=== PATIENT | male | born 1975 | race Caucasian/White ===

== ENCOUNTER 2018-01-25 17:37 | Emergency (ER) | payer BC ==
[~2018-01-25] VITALS: Ht 172.7 cm; Wt 79.4 kg
[2018-01-25 17:37] VITALS: BP_SYST 125
--- NOTE | 2018-01-25 17:37 | NUR ---
BROUGHT BACK TO BED #4 AND TRIAGED, REPORT GIVEN TO SALVATORE
--- NOTE | 2018-01-25 17:40 | NUR ---
ER at bedside examining patient.
--- NOTE | 2018-01-25 17:45 | NUR ---
Pt presents to ER c/o fever, nausea, vomiting, body aches, chills. Pt reports that these symptoms began yesteday, denies any pain at the moment but reports overall general weakness. Pt in no acute distress, speaking full sentences, respirations even and unlabored, AOX4, NKDA.
[2018-01-25] MEDS ORDERED: NACL 0.9% 1,000 ML IV ONE (17:48)
--- NOTE | 2018-01-25 18:00 | NUR ---
# 20 gauge angiocath placed to LAC. Use of asceptic technique. Opsite placed over site. Blood return noted. Blood for lab drawn from site. Flushed with 10 cc of normal saline. No evidence of infiltration noted. Patient tolerated well.
--- NOTE | 2018-01-25 18:15 | NUR ---
Radiology at bedside.
[2018-01-25 18:19] LABS: BILIRUBIN,URINE 1+ (NEGATIVE); BLOOD, URINE 3+ (NEGATIVE); CLARITY/URINE HAZY (CLEAR); COLOR,URINE AMBER (YELLOW); GLUCOSE,URINE NEGATIVE (NEGATIVE); KETONES,URINE 3+ (NEGATIVE); LEUKOCYTE ESTERASE ,URINE NEGATIVE (NEGATIVE); NITRITE, URINE NEGATIVE (NEGATIVE); PH,URINE 5.5 (5.0-8.0); PROTEIN URINE 2+ (NEGATIVE)
[2018-01-25 18:22] LABS: HEMATOCRIT 43.7 % (36-54); MEAN CORPUSCULAR HEMOGLOBIN 32 pg (27-31); MEAN CORPUSCULAR HGB CONC 34 % (32-36); MEAN CORPUSCULAR VOLUME 92 fL (79.0-98.0); PLATELET COUNT (AUTO) 258 K/uL (130-430); RED CELL DISTRIBUTION WIDTH 12.5 % (9.0-15.0)
[2018-01-25] MEDS ORDERED: cefTRIAXone 2 GM VIAL ONE (18:23)
[2018-01-25 18:25] LABS: RED BLOOD CELL COUNT(AUTO) 4.75 MIL/uL (4.2-6.2); WHITE BLOOD COUNT (AUTO) 25.7 K/uL (4.8-10.8)
[2018-01-25 18:32] LABS: BAND % (MANUAL) 5 % (0-6); BASOPHILS % (MANUAL) 0 % (0-2); EOSINOPHILS % (MANUAL) 0 % (0-7); LYMPHOCYTES % (MANUAL) 5 % (20-46); MONOCYTES % (MANUAL) 6 % (0-11)
[2018-01-25 18:32] LABS: BACTERIA,URINE MODERATE /HPF (None Seen); MUCUS,URINE 3+ /LPF (None Seen)
[2018-01-25 18:33] LABS: CALCIUM 8.5 mg/dL (8.4-11.0); CREATININE 0.87 mg/dL (0.55-1.30); INR 1.2 (0.80-1.20); PROTHROMBIN TIME 12.4 SECS (9.5-12.5)
[2018-01-25 18:38] LABS: ALBUMIN 3.5 g/dL (3.4-4.8); TOTAL BILIRUBIN 1.3 mg/dL (0.0-1.0)
[2018-01-25 18:40] LABS: POTASSIUM 2.8 mmol/L (3.5-5.1)
[2018-01-25] MEDS ORDERED: POTASSIUM CHLORIDE 20 MEQ/PKT PACKET PO ONE (18:45)
--- NOTE | 2018-01-25 19:19 | NUR ---
Dr. Souza at bedside speaking with pt and family.
[2018-01-25 19:20] LABS: CREATININE 0.88 mg/dL (0.55-1.30)
[2018-01-25 19:23] LABS: POTASSIUM 2.9 mmol/L (3.5-5.1)
--- NOTE | 2018-01-25 19:26 | NUR ---
Patient medicated per md orders. Patient tolerated well. Will continue to monitor.
[2018-01-25 20:07] LABS: BASOPHILS # (AUTO) 0.2 K/uL (0.0-0.2); BASOPHILS % (AUTO) 0.7 % (0.0-2.0); HEMATOCRIT 40.9 % (36-54); HEMOGLOBIN 13.8 g/dL (14.0-18.0); LYMPHOCYTES # (AUTO) 1.3 K/uL (1.0-5.5); LYMPHOCYTES % (AUTO) 5.2 % (20.5-51.5); MEAN CORPUSCULAR HEMOGLOBIN 31 pg (27-31); MEAN CORPUSCULAR HGB CONC 34 % (32-36); MEAN CORPUSCULAR VOLUME 92 fL (79.0-98.0); MONOCYTES # (AUTO) 1.6 K/uL (0.0-1.0); MONOCYTES % (AUTO) 6.2 % (1.7-9.3); NEUTROPHILS # (AUTO) 22.2 K/uL (1.8-7.7); NEUTROPHILS % (AUTO) 87.9 % (40.0-70.0); PLATELET COUNT (AUTO) 259 K/uL (130-430); RED BLOOD CELL COUNT(AUTO) 4.45 MIL/uL (4.2-6.2); RED CELL DISTRIBUTION WIDTH 12.6 % (9.0-15.0); WHITE BLOOD COUNT (AUTO) 25.3 K/uL (4.8-10.8)
[2018-01-25 20:57] VITALS: BP_SYST 111
--- NOTE | 2018-01-25 20:57 | NUR ---
Patient given written and verbal discharge instructions and verbalizes understanding. ER MD discussed with patient the results and treatment provided. Patient in stable condition. ID arm band removed. IV catheter removed intact and dressing applied, no active bleeding. Rx of zithromax given. Patient educated on pain management and to follow up with PMD in 2-3 days. Pain Scale 0/10 Opportunity for questions provided and answered.
== END 2018-01-25 20:57 | disposition home or self-care (01) ==
LOC: SED 17:37
DX: D72.829 Elevated white blood cell count, unspecified (principal); E87.6 Hypokalemia
CPT/HCPCS: 36415; 71045; 80048; 80053; 81000; 83605; 83690; 85007; 85025; 85027; 85610; 85730; 86635; 87040; 87086; 96365; 99285; J0696; J7060

== ENCOUNTER 2023-07-05 12:23 | Emergency (ER) | payer BC ==
[~2023-07-05] VITALS: Ht 170.2 cm; Wt 89.8 kg
[2023-07-05 12:25] VITALS: BP_SYST 174; PULSE 89; RESP 17; TEMP 98.5; O2SAT 97
[2023-07-05] MEDS ORDERED: TETRACAINE HCL/PF 0.5% OPHTHALMIC DROPS 4 ML OP ONE (13:30)
[2023-07-05] MEDS ORDERED: FLUORESCEIN SODIUM 1 MG OPHTHALMIC STRIP OP ONE (13:30)
[2023-07-05] MEDS ORDERED: PRED5DRO25 RIGHT EYE (15:28)
[2023-07-05] MEDS ORDERED: OFLO5DRO6 RIGHT EYE (15:28)
[2023-07-05] MEDS ORDERED: IBUP-1969 PO (15:28)
[2023-07-05 15:37] VITALS: BP_SYST 174; PULSE 89; RESP 17; TEMP 98.5; O2SAT 97
== END 2023-07-05 15:37 | disposition home or self-care (01) ==
LOC: SED 12:23
DX: H10.9 Unspecified conjunctivitis (principal); H20.9 Unspecified iridocyclitis; I10 Essential (primary) hypertension; Z79.899 Other long term (current) drug therapy
CPT/HCPCS: 99283